=== PATIENT | female | born 1940 | race Caucasian/White ===

== ENCOUNTER → 2025-08-20 09:26 | Outpatient (REF) | payer MEDICARE, SELFPAY | LOC: RAD 09:26 | PROVIDERS: ATTENDING PHYSICIAN Internal Medicine Geriatric Medicine | DX: N18.32 Chronic kidney disease, stage 3b (principal) | CPT/HCPCS: 76770 ==

== ENCOUNTER → 2025-10-07 12:56 | Outpatient (REF) | payer MEDICARE, BC, SELFPAY | LOC: RAD 12:56 | PROVIDERS: ATTENDING PHYSICIAN Internal Medicine Geriatric Medicine; OTHER PHYSICIAN Nurse Practitioner Adult Health | DX: Z78.0 Asymptomatic menopausal state (principal); M25.521 Pain in right elbow | CPT/HCPCS: 73080; 77080 ==